=== PATIENT | male | born 1945 | race African-American/Black ===

== ENCOUNTER 2018-04-29 05:43 | Day surgery (SDC) | payer OTHER, BC ==
[2018-04-21 11:22] VITALS: BMI 25.1
[2018-04-29] MEDS ORDERED: DEXAMETHASONE SOD PHOSPHATE/PF 10 MG/ML SDV ONE (06:44)
[2018-04-29] MEDS ORDERED: MIDAZOLAM HCL 2 MG/2 ML SINGLE DOSE VIAL ONE (06:44)
[2018-04-29] MEDS ORDERED: ROPIVACAINE HCL 0.5% 30ML VIAL ONE (06:44)
[2018-04-29] MEDS ORDERED: BUPIVACAINE HCL/EPINEPHRINE/PF 30 ML VIAL IJ ONE (07:07)
--- NOTE | 2018-04-29 07:17 | HP ---
History & Physical Update - History History: No Change - Physical Physical: No Change - Assessment Assessment: No Change - Plan Plan: No Change (no change since visit on 04/25/18)
[2018-04-29] MEDS ORDERED: EPINEPHrine 1:1,000 1 MG/1 ML - 30ML VIAL (INJECTION) ONE (07:19)
[2018-04-29] MEDS ORDERED: PROPOFOL 20 ML ONE ×4 (07:54→08:54)
[2018-04-29] MEDS ORDERED: SUCCINYLCHOLINE CHLORIDE 200 MG/10 ML VIAL ONE (07:54)
[2018-04-29] MEDS ORDERED: ceFAZolin SODIUM 1 GM VIAL ONE (07:56)
[2018-04-29] MEDS ORDERED: ONDANSETRON 4 MG/2 ML VIAL ONE (07:59)
[2018-04-29] MEDS ORDERED: DEXAMETHASONE SOD PHOSPHATE 4 MG/1 ML VIAL ONE (07:59)
[2018-04-29] MEDS ORDERED: oxyCODONE HCL 10 MG SUSTAINED ACTING TABLET PO ONE (09:13)
[2018-04-29] MEDS ORDERED: oxyCODONE HCL 5 MG TABLET PO PRN ×2 (09:13→11:23)
--- NOTE | 2018-04-29 09:17 | OP ---
Operative Note - Note: Operative Date: 04/29/18 Pre-Operative Diagnosis: right shoulder RCT Operation: RSA debridement, RCR Post-Operative Diagnosis: Same as Pre-op Surgeon: Shiv Krueger Lpta: Mohini Frank Operative Report Dictated: Yes
--- NOTE | 2018-04-29 09:17 | DS ---
Physical Examination Vital Signs: Vital Signs Temperature 97.7 F 04/29/18 06:16 Pulse Rate 66 04/29/18 06:16 Respiratory Rate 18 04/29/18 06:16 Blood Pressure 116/73 04/29/18 06:16 O2 Sat by Pulse Oximetry (%) 100 04/29/18 06:16 Discharge Summary Reason For Visit: ROTATOR CUFF TEAR RIGHT SHOULDER Condition: Good - Instructions Diet, Activity, Other Instructions: Post Operative Instructions: Shoulder Arthroscopy Dr Shiv Krueger 1. Pain following a Shoulder Arthroscopy is variable and can be significant. Some patients will have more pain than others. You have been provided with a prescription for medication that contains a narcotic. You are not allowed to drive while on this medication. You can take Tylenol (Acetaminophen) too. Feel free to take medications such as Ibuprofen or Naprosyn in addition to the pain medicine if you do not have any problems with the NSAID class of medications. 2. Apply ice to the shoulder for 15 minutes every hour. You may continue this for as many days as necessary. 3. You may find sleeping on an incline (reclining chair) to be more comfortable for the first few days. 4. You must remain in your sling at all times except when showering. The only exception to this is to allow you to stretch your elbow a few times a day to prevent your hand and forearm from swelling. 5. You are not to use your arm to reach for anything, lift anything or carry anything until instructed otherwise. 6. You may remove the bandages in 48 hours. You may shower at that point. 7. Place band-aids on the incisions after your shower.Do not put any creams or lotions on the incision until after I check the incisions. 8. Please call the office to schedule a visit to have your incisions checked. 9. If for any reason you believe you may have an infection or are concerned, please feel free to call me. I can be reached through our office number 24 hours a day. 10. Please call our office with any questions; we will review the surgical findings during your post-operative visit. Disposition: HOME - Home Medications Comprehensive Discharge Medication List: Ambulatory Orders Amlodipine Besylate [Norvasc -] 10 mg PO DAILY 04/21/18 Aspirin [ASA -] 81 mg PO DAILY 04/21/18 Glipizide [Glipizide ER] 10 mg PO DAILY 04/21/18 metFORMIN HCL [Metformin HCl] 500 mg PO TID 04/21/18
--- NOTE | 2018-04-29 09:37 | SURG ---
Surgery Milk Powder Grinder Note Milk Powder Grinder: Mohini Frank PA-C Date of Service: 04/29/18 Diagnosis: right shoulder rotator cuff tear Procedure: Right shoulder arthroscopy with rotator cuff repair I was present for the entirety of the operative procedure. For further detail, please refer to operative report. Visit type - Case Type Case Type: Scheduled - Emergency Emergency Visit: No - New patient This patient is new to me today: Yes Date on this admission: 04/29/18
[2018-04-29 10:41] VITALS: TEMP 98.4
[2018-04-29 10:50] VITALS: BP 143/85; PULSE 59
[2018-04-29] MEDS ORDERED: ONDANSETRON 4 MG/2 ML VIAL IVPUSH PRN (11:23)
[2018-04-29] MEDS ORDERED: LACTATED RINGERS SOLUTION 1,000 ML IV SCH (11:30)
--- NOTE | 2018-05-03 15:31 | PATH ---
Surgical Pathology Report Patient Name: CHAIM CORNEJO Med. Rec. #: [id number] /Age/Gender: 1945 (Age: 72) / M Account: [id number] Location: [facility] AMBULATORY Taken: 04/29/2018 Received: 04/29/2018 Reported: 05/03/2018 Physicians: Shiv Krueger M.D. Specimen(s) Received SHAVINGS RIGHT SHOULDER Clinical History Right rotator cuff tear Final Diagnosis RIGHT SHOULDER SHAVINGS: FRAGMENTS OF BONE, SYNOVIAL TISSUE, AND FIBROCARTILAGINOUS TISSUE WITH REACTIVE AND DEGENERATIVE CHANGE. ACUTE INFLAMMATORY AND FIBRINOUS EXUDATE PRESENT. Electronically Signed Des Ulrich M.D. Gross Description Received in formalin, labeled "shavings right shoulder," is a 3.5 x 3.2 x 0.3 cm. aggregate of zepeda-yellow soft tissue fragments. A printing sales representative portion is submitted in one cassette. /05/02/2018 saudi05/02/2018
== END 2018-04-29 10:30 | disposition home or self-care (01) ==
LOC: FASU 05:43
PROVIDERS: ATTEND Orthopaedic Surgery
PROC: 0LS14ZZ Reposition Right Shoulder Tendon, Percutaneous Endoscopic Approach (ICD-10-PCS; 2018-04-29)
PROC: 0RNJ4ZZ Release Right Shoulder Joint, Percutaneous Endoscopic Approach (ICD-10-PCS; 2018-04-29)
PROC: 0RBJ4ZZ Excision of Right Shoulder Joint, Percutaneous Endoscopic Approach (ICD-10-PCS; 2018-04-29)
PROC: 0LQ14ZZ Repair Right Shoulder Tendon, Percutaneous Endoscopic Approach (ICD-10-PCS; principal; 2018-04-29 08:10)
DX: M75.121 Complete rotator cuff tear or rupture of right shoulder, not specified as traumatic (principal); M25.311 Other instability, right shoulder
CPT/HCPCS: 82962; 88304-TC